=== PATIENT | male | born 2005 | race American Indian/Alaskan Native ===

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

== ENCOUNTER 2023-01-10 00:16 | Emergency (ER) | payer MEDICAID | END 2023-01-10 00:18 | disposition other institution (70) | LOC: DL.ED 00:16 | DX: F10.129 Alcohol abuse with intoxication, unspecified (principal); R04.0 Epistaxis | CPT/HCPCS: 99284 ==